=== PATIENT | female | born 1935 | race Caucasian/White ===

== ENCOUNTER 2021-09-07 17:05 | Observation (INO) | payer MEDICARE ==
[2021-09-07 18:58] VITALS: BMI 37.1
[2021-09-07] MEDS ORDERED: Ondansetron PF 4 MG/2 ML Vial IVP PRN (20:26)
[2021-09-07] MEDS ORDERED: Acetaminophen 650 MG Suppository PR PRN (20:26)
[2021-09-07] MEDS ORDERED: Ondansetron ODT 4 MG TAB PO PRN (20:26)
[2021-09-08 04:55] LABS: #Basophils 0.1 thou/uL (0.0-0.2); #Eosinphils 0.2 thou/uL (0.0-0.7); #Lymphocytes 2.1 thou/uL (1.20-3.40); #Monocytes 0.8 thou/uL (0.11-0.59); #Neutrophils 3.3 thou/uL (1.40-6.50); %Basophils 0.8 % (0.0-1.0); %Eosinophils 2.8 % (0.0-10.0); %Lymphocytes 32.7 % (21.0-51.0); %Neutrophils 51.7 % (42.0-75.0); Hemoglobin 11.5 g/dL (12.0-16.0); Mean Corpuscular HGB CONC 32.1 g/dL (32.0-36.0); Mean Corpuscular Hemoglobin 29.2 pg (27.0-31.0); Mean Corpuscular Volume 90.8 fL (78.0-98.0); Mean Platelet Volume 7.5 fL (7.4-10.4); Platelet Count 359 thou/uL (130-400); RBC Distribution Width 14.4 % (11.5-14.5); Red Blood Cell (RBC) Count 3.96 mill/uL (4.20-5.40); White Blood Cell (WBC) Count 6.5 thou/uL (4.8-10.8)
[2021-09-08 05:19] LABS: Anion Gap 14 mmol/L (10-20); BUN (Urea Nitrogen) 13 mg/dL (9.8-20.1); Calc. Creatinine Clearance 85 mL/min (70-130); Calcium 9.3 mg/dL (7.8-10.44); Carbon Dioxide 27 mmol/L (23-31); Chloride 106 mmol/L (98-107); Glucose 92 mg/dL (83-110); Potassium 3.7 mmol/L (3.5-5.1); Sodium 143 mmol/L (136-145)
[2021-09-08] MEDS: Enoxaparin Sodium 120 MG/0.8 ML SYRINGE SC SCH ×2 (05:55→18:31)
[2021-09-08] MEDS: Acetaminophen 325 MG TAB PO PRN ×2 (08:10→08:20)
[2021-09-08] MEDS: Furosemide 20 MG/2 ML VIAL SLOW IVP SCH ×2 (08:13→10:41)
[2021-09-08] MEDS ORDERED: Albuterol 200 PUFF (6.7GM INHALER) INH PRN (08:37)
[2021-09-08] MEDS ORDERED: Aspirin 325 MG TAB PO SCH (09:00)
[2021-09-08] MEDS ORDERED: Lisinopril 20 MG TAB PO SCH (09:00)
[2021-09-08] MEDS ORDERED: Aspirin Chewable 81 MG TAB PO SCH (09:00)
[2021-09-08] MEDS: Metoprolol Tartrate 25 MG TAB PO SCH ×2 (10:39→20:37)
[2021-09-08 15:37] VITALS: BP 126/65; TEMP 97.9
== END 2021-09-08 20:43 | disposition home or self-care (01) ==
LOC: 2NO 18:32 → INTOOBSV 18:32
PROVIDERS: ADMIT Internal Medicine; ATTEND Internal Medicine
DX: I26.99 Other pulmonary embolism without acute cor pulmonale (principal); M17.12 Unilateral primary osteoarthritis, left knee; I08.1 Rheumatic disorders of both mitral and tricuspid valves; Z72.3 Lack of physical exercise; Z79.82 Long term (current) use of aspirin; Z79.899 Other long term (current) drug therapy; Z88.2 Allergy status to sulfonamides; Z88.6 Allergy status to analgesic agent; Z96.651 Presence of right artificial knee joint
CPT/HCPCS: 80048; 85025; 93306; 96372; 96374; G0378 ×2; 36415; J1650; J1940